=== PATIENT | male | born 1980 | race American Indian/Alaskan Native ===

== ENCOUNTER 2019-05-04 22:18 | Emergency (ER) | payer SELFPAY ==
[2019-05-04] MEDS ORDERED: ASPIRIN PO ONE (22:40)
--- NOTE | 2019-05-04 22:42 | Event Note ---
ED Screening Note Date of service: 05/04/19 Time: 22:37 ED Screening Note: This is a 39 y.o. M. that presents to the ER with chest tightness and right side of neck for 2 days. Pain usually occur at the end of work shift and last for a few hours. Reports dizziness. Nonsmoker This initial assessment/diagnostic orders/clinical plan/treatment(s) is/are subject to change based on patients health status, clinical progression and re- assessment by fellow clinical providers in the ED. Further treatment and workup at subsequent clinical providers discretion. Patient/guardian urged not to elope from the ED as their condition may be serious if not clinically assessed and managed. Initial orders include: Labs, EKG, & CXR
[2019-05-04 23:22] LABS: Hematocrit 42.8 % (35.5-45.6); Hemoglobin 14.6 gm/dl (11.8-15.2); Mean Corpuscular HGB Conc 34 % (32-34); Mean Corpuscular Volume 90 fl (84-94); Platelet Count 272 K/mm3 (140-440); Red Blood Count 4.78 M/mm3 (3.65-5.03); Red Cell Distribution Width 12.8 % (13.2-15.2)
[2019-05-04 23:44] LABS: BUN/Creatinine Ratio 16; Blood Urea Nitrogen 18 mg/dL (9-20); Calcium 9.6 mg/dL (8.4-10.2); Hemolysis Index 20
--- NOTE | 2019-05-05 01:11 | Emergency Department Report ---
ED Chest Pain HPI - General Chief Complaint: Chest Pain Stated Complaint: NECK/CHEST TIGHTNESS Time Seen by Provider: 05/04/19 22:36 Source: patient Mode of arrival: Ambulatory Limitations: No Limitations - History of Present Illness Initial Comments: 39 yo M with hx of vertigo presents to ED with report of onset of chest pain 2 days ago. States pain was intermittent, lasting only a few seconds at a time, located in the substernal area, with radiation to the right neck. Describes pain as a tightness. Pt denies having associated SOB, nausea, vomiting, diaphoresis, leg pain or swelling. Denies any chest pain at this time. Pt denies any cough, fever, or recent illness. Denies tobacco and drug use. MD Complaint: chest pain -: days(s) (2) Onset: during rest Pain Location: substernal Pain Radiation: neck Severity: mild Severity scale (0 -10): 0 Quality: tightness Consistency: intermittent Improves With: nothing Worsens With: nothing re: denies: nausea, vomting, diaphoresis, dyspnea Other Symptoms: denies: cough, fever, leg swelling, palpitations - Related Data Previous Rx's Medication Instructions Recorded Last Taken Type Naproxen [Naprosyn] 500 mg PO BID #20 tablet 05/05/19 Unknown Rx Allergies Allergy/AdvReac Type Severity Reaction Status Date / Time No Known Allergies Allergy Verified 05/04/19 22:25 Heart Score - HEART Score History: Slightly suspicious EKG: Non-specific Age: < 45 Risk factors: No known risk factors Troponin: < normal limit HEART Score: 1 ED Review of Systems ROS: Stated complaint: NECK/CHEST TIGHTNESS Other details as noted in HPI Comment: All other systems reviewed and negative Constitutional: denies: chills, fever Respiratory: denies: cough, shortness of breath Cardiovascular: chest pain. denies: palpitations Gastrointestinal: denies: abdominal pain, nausea, vomiting Musculoskeletal: other (denies leg pain or swelling) ED Past Medical Hx - Past Medical History Previous Medical History?: No - Surgical History Past Surgical History?: Yes Additional Surgical History: finger surgery - Social History Smoking Status: Never Smoker Substance Use Type: None - Medications Home Medications: Home Medications Medication Instructions Recorded Confirmed Last Taken Type Naproxen [Naprosyn] 500 mg PO BID #20 tablet 05/05/19 Unknown Rx ED Physical Exam - General Limitations: No Limitations General appearance: alert, in no apparent distress - Head Head exam: Present: atraumatic, normocephalic - Eye Eye exam: Present: normal appearance, PERRL, EOMI - ENT ENT exam: Present: mucous membranes moist - Neck Neck exam: Present: normal inspection - Respiratory Respiratory exam: Present: normal lung sounds bilaterally. Absent: respiratory distress - Cardiovascular Cardiovascular Exam: Present: regular rate, normal rhythm - GI/Abdominal GI/Abdominal exam: Present: soft. Absent: distended, tenderness - Extremities Exam Extremities exam: Present: normal inspection. Absent: pedal edema, calf tenderness - Neurological Exam Neurological exam: Present: alert, oriented X3 - Psychiatric Psychiatric exam: Present: normal affect, normal mood - Skin Skin exam: Present: warm, dry, intact, normal color ED Course Vital Signs 05/04/19 05/04/19 05/04/19 22:25 22:57 23:14 Temperature 98.7 F Pulse Rate 73 77 Respiratory 18 13 15 Rate Blood Pressure 128/81 Blood Pressure 145/81 [Left] O2 Sat by Pulse 97 99 98 Oximetry 05/05/19 05/05/19 00:08 01:44 Temperature Pulse Rate 70 67 Respiratory 13 16 Rate Blood Pressure Blood Pressure 121/76 116/79 [Left] O2 Sat by Pulse 97 97 Oximetry ED Medical Decision Making - Lab Data Result diagrams: 05/04/19 22:52 05/04/19 22:52 - EKG Data -: EKG Interpreted by Me EKG shows normal: sinus rhythm, axis, intervals, QRS complexes, ST-T waves Rate: normal - EKG Data Interpretation: other (ST elevations appear to be early repol; no reciprocal changes) - Radiology Data Radiology results: image reviewed interpreted by me: no acute abnormalities - Medical Decision Making - ST elevations anteriorly appear to be early repol; no reciprocal changes - trop negative x 2 - no chest pain while here in ED - CXR appears unremarkable - vitals normal, no resp distress, O2 sats normal - low suspicion for PE - info faxed for f/u with [facility] - return precautions given - Differential Diagnosis ACS, pericarditis, pneumonia, PTX Critical care attestation.: If time is entered above; I have spent that time in minutes in the direct care of this critically ill patient, excluding procedure time. ED Disposition Clinical Impression: Acute chest pain Disposition: DC-01 TO HOME OR SELFCARE Is pt being admited?: No Condition: Stable Instructions: Chest Pain (ED) Prescriptions: Naproxen [Naprosyn] 500 mg PO BID #20 tablet Referrals: [facility] [Provider Group] - 3-5 Days Forms: Work/School Release Form(ED) Time of Disposition: 01:47
[2019-05-05] MEDS ORDERED: NACL 0.9% 1000 ML 0 ML ONE (01:24)
[2019-05-05 01:51] VITALS: BP 116/79
--- NOTE | 2019-05-05 02:20 | XRay Report ---
CHEST 1 VIEW [id number] INDICATION / CLINICAL INFORMATION: Chest Pain. COMPARISON: None available. FINDINGS: SUPPORT DEVICES: None HEART / MEDIASTINUM: No significant abnormality. LUNGS / PLEURA: No significant pulmonary or pleural abnormality. No pneumothorax. ADDITIONAL FINDINGS: No significant additional findings. IMPRESSION: No significant acute abnormality Signer Name: Dwight Dey MD Signed: 05/05/2019 2:15 AM Workstation Name: [email or web address]
[2019-05-05 02:38] LABS: Total Cells Counted 100
[2019-05-05 02:39] LABS: Ovalocytes Few
[2019-05-05 02:40] LABS: Large Platelets Few; Platelet Estimate Consistent w Auto
== END 2019-05-05 02:11 | disposition home or self-care (01) ==
LOC: ED 22:18
DX: R07.89 Other chest pain (principal)
CPT/HCPCS: 36415; 71045; 80048; 84484; 85007; 85025; 93005; 93010; J7030